=== PATIENT | female | born 1940 | race Caucasian/White ===

== ENCOUNTER 2020-09-20 18:42 | Emergency (ER) | payer MEDICARE, OTHER ==
[2020-09-20 20:04] LABS: HEMOGLOBIN 14.8 gm/dl (12.3-15.3); RED BLOOD COUNT 4.44 M/UL (4.00-5.10); WHITE BLOOD COUNT 11.1 K/UL (4.5-11.0)
[2020-09-20 20:32] LABS: BUN/CREATININE RATIO 13 (0-10)
== END 2020-09-21 04:45 | disposition short-term general hospital (02) ==
LOC: ER1 18:42
PROVIDERS: Family Medicine
DX: I74.3 Embolism and thrombosis of arteries of the lower extremities (principal); I48.91 Unspecified atrial fibrillation; I70.90 Unspecified atherosclerosis; Z79.01 Long term (current) use of anticoagulants; Z20.822 Contact with and (suspected) exposure to COVID-19
CPT/HCPCS: 80048; 82550; 82553; 83874; 84484; 85025; 85379; 85730; 93005; 93926; 99284; J1644; U0002

== ENCOUNTER 2021-03-10 05:36 | Inpatient (IN) | payer MEDICARE, OTHER ==
[~2021-03-10] VITALS: Ht 157.5 cm; Wt 72.6 kg
[2021-03-10 06:54] LABS: HEMOGLOBIN 15.2 gm/dl (12.3-15.3); RED BLOOD COUNT 4.62 M/UL (4.00-5.10); WHITE BLOOD COUNT 5.5 K/UL (4.5-11.0)
[2021-03-10 07:23] LABS: BUN/CREATININE RATIO 22 (0-10)
[2021-03-10] MEDS ORDERED: ZOFRAN ODT 4 MG4 MG PO (10:09)
[2021-03-10] MEDS ORDERED: MUCUS DM PO (10:12)
[2021-03-10] MEDS ORDERED: DOXYCYCLINE HY100 MG PO (10:13)
[2021-03-10] MEDS ORDERED: VOLTAREN ARTHRI20 GM TOP (10:14)
[2021-03-10] MEDS ORDERED: ESOMEPRAZOLE MA20 MG PO (10:14)
[2021-03-10] MEDS ORDERED: METOPROLOL SUCC50 MG PO (10:15)
[2021-03-10] MEDS ORDERED: ISOSORBIDE MONO30 MG PO (10:15)
[2021-03-10] MEDS ORDERED: HYDROCHLOROTH12.5 M1 PO (10:15)
[2021-03-10] MEDS ORDERED: ASPIRIN EC81 MG PO (10:16)
[2021-03-10] MEDS ORDERED: SIMVASTATIN10 MG PO (10:16)
[2021-03-10] MEDS ORDERED: XARELTO10 MG PO (10:16)
[2021-03-10] MEDS ORDERED: ACETAMINOPHEN325 MG PO (10:16)
[2021-03-11 06:54] LABS: HEMOGLOBIN 14.8 gm/dl (12.3-15.3); RED BLOOD COUNT 4.58 M/UL (4.00-5.10); WHITE BLOOD COUNT 6.1 K/UL (4.5-11.0)
[2021-03-11 07:46] LABS: BUN/CREATININE RATIO 19 (0-10)
[2021-03-12 04:31] LABS: HEMOGLOBIN 15.5 gm/dl (12.3-15.3); RED BLOOD COUNT 4.85 M/UL (4.00-5.10)
[2021-03-12 04:32] LABS: WHITE BLOOD COUNT 3.1 K/UL (4.5-11.0)
[2021-03-12 05:15] LABS: BUN/CREATININE RATIO 28 (0-10)
[2021-03-13 07:17] LABS: HEMOGLOBIN 14.8 gm/dl (12.3-15.3); RED BLOOD COUNT 4.64 M/UL (4.00-5.10)
[2021-03-13 07:47] LABS: BUN/CREATININE RATIO 29 (0-10)
[2021-03-14 07:43] LABS: HEMOGLOBIN 13.9 gm/dl (12.3-15.3); RED BLOOD COUNT 4.43 M/UL (4.00-5.10)
[2021-03-14 07:44] LABS: WHITE BLOOD COUNT 6.5 K/UL (4.5-11.0)
[2021-03-14 08:23] LABS: BUN/CREATININE RATIO 30 (0-10)
--- NOTE | 2021-03-17 15:06 | NUR ---
02 sat down to 86% on room air
--- NOTE | 2021-03-17 19:25 | NUR ---
Late Entry...1714 Discharge instructions given to pat. as written, however pat. says that she is nopt able to reach her daughter to come get her.I tried several times to reach pat's daughter however, there was no answer. I spoke to case resolution specialist Charlotte Santos earlier today and she also reported that she could not reach the daughter. I contacted Dr. Shook and made her aware aware that pat. has no transportation home, cannot prasanth cab because patient is covid positive. No new orders rec. Dr. Shook also attempted to contact patient's daughter
== END 2021-03-17 22:43 | disposition home or self-care (01) | DRG 177 ==
LOC: ER1 05:36 → CDU 08:57 → M/S 08:57 → 3 EAST 11:43 → M/S 18:05 → 3 EAST 18:05 → M/S 18:05
PROVIDERS: Family Medicine; Physician Assistant Medical; ADMIT Internal Medicine
PROC: 8E0ZXY6 Isolation (ICD-10-PCS; principal; 2021-03-10)
PROC: XW033E5 Introduction of Remdesivir Anti-infective into Peripheral Vein, Percutaneous Approach, New Technology Group 5 (ICD-10-PCS; 2021-03-10)
PROC: 3E0333Z Introduction of Anti-inflammatory into Peripheral Vein, Percutaneous Approach (ICD-10-PCS; 2021-03-11)
DX: U07.1 COVID-19 (principal); J12.82 Pneumonia due to coronavirus disease 2019; J96.01 Acute respiratory failure with hypoxia; I48.20 Chronic atrial fibrillation, unspecified; E87.6 Hypokalemia; E83.42 Hypomagnesemia; R73.9 Hyperglycemia, unspecified; T38.0X5A Adverse effect of glucocorticoids and synthetic analogues, initial encounter; K21.9 Gastro-esophageal reflux disease without esophagitis; I10 Essential (primary) hypertension; E78.5 Hyperlipidemia, unspecified; Z98.890 Other specified postprocedural states; Z82.49 Family history of ischemic heart disease and other diseases of the circulatory system; Z79.01 Long term (current) use of anticoagulants
CPT/HCPCS: 36415; 36600; 71045; 80048; 80053; 80076; 82550; 82553; 82803; 83605; 83690; 83735; 83874; 84132; 84484; 85025; 85027; 85379; 93005; 94640; 94760; 96374; 97161; 99285; J0248; J0456; J0696; J1100; J1650; J2405; J2550; J7030; U0002